=== PATIENT | male | born 1955 | race Caucasian/White ===

== ENCOUNTER 2020-01-21 06:44 | Day surgery (SDC) | payer BC ==
[~2020-01-21] VITALS: Ht 180.3 cm; Wt 93.9 kg
[~2020-01-21 06:44] MED LIST: ANUCORT-HC25 MG PR; DILTIAZEM ER240 MG PO; FAMOTIDINE40 MG PO; FLEXERIL10 MG PO; KEFLEX500 MG PO; LISINOPRIL20 MG PO; NORCO 5-325 TA1 EACH PO; OMEPRAZOLE20 MG PO; PLAVIX75 MG PO
--- NOTE | 2020-01-21 09:04 | NUR ---
01/21/20 0904 Radha Starr 0814 PT ARRIVED TO PACU ON 3L VIA NC, PT WAKES TO VERBAL STIMULI AND IS REORIENTED TO PACU. RESP EVEN AND UNLABORED. VSS. PT FALLS EASILY BACK TO SLEEP.
--- NOTE | 2020-01-21 10:22 | NUR ---
PT ALERT, ORIENTED AND NOTED THAT HIS DWAINE IS TO BE NOTIFIED WHEN HE IS READY FOR DC. PT HAS HAD PREVIOUS SCOPES, QUESTIONS ASKED AND ANSWERED. PT ALSO REQUESTED PRAYER
--- NOTE | 2020-01-21 14:55 | OR ---
[facility] [address] [place], [place] [address] Signed DATE OF OPERATION: SURGEON: Cristo Erickson MD PREOPERATIVE DIAGNOSES: 1. Screening. 2. Internal and external hemorrhoids. POSTOPERATIVE DIAGNOSES: 1. A 4 mm polyp at 18 cm (rectosigmoid junction). 2. A 3 mm polyps x2 at 15 cm. 3. Minimal internal hemorrhoids. 4. Minimal to moderate external hemorrhoids. PROCEDURE: Colonoscopy with cold biopsy. ESTIMATED BLOOD LOSS: None. INDICATIONS: Juan is a 64-year-old gentleman who had unremarkable screening colonoscopy back in 2008 except for internal and external hemorrhoids. He tells me he is doing great and has no lower GI complaints currently. There is no family history of colon cancer or polyps. He returns for a followup screening colonoscopy. I gave Juan a pamphlet on colonoscopy. We looked at that together along with the risks including, but not limited to gas bloating, crampy abdominal pain, bleeding, perforation requiring surgery, and missed diagnosis. He also understands the need for IV conscious sedation. He had expressed and understanding wished to proceed. DESCRIPTION OF PROCEDURE: Juan was taken into our endoscopy suite and placed in the left lateral decubitus position. He was given a total of 7 mg of Versed and 100 mcg of fentanyl to cover the case. A digital rectal exam was performed. He does have minimal to moderate circumferential external hemorrhoids. Also his prostate gland is moderately enlarged and moderately indurated. The left low more prominent than the right. The adult colonoscope was then introduced, advanced all around into the cecum under direct visualization of camera without difficulty. He woke up briefly as we came around the hepatic flexure and into the cecum itself. His prep was quite excellent. The scope was slowly withdrawn. We could easily see the appendiceal orifice and the ileocecal valve. The above-mentioned polyps were easily removed with the help of our cold biopsy forceps. Electronically Signed By: CRISTO ERICKSON MD 01/21/20 1455 PATIENT NAME: JUAN SMITH OPERATIVE REPORT DATE OF : 59 REPORT #: [id number] PHYSICIAN: CRISTO ERICKSON MD PCP: GABY ESPINOSA MD REPORT IS CONFIDENTIAL AND NOT TO BE RELEASED WITHOUT AUTHORIZATION [address] [address] Signed Upon retroflexion of scope, he does have just minimal internal hemorrhoid tissue. The gas was then suctioned out and the colonoscope removed. Overall, Juan tolerated this procedure quite well. RECOMMENDATIONS: I will see Juan back in my office in 7 to 14 days to review his results. Cristo Erickson MD ALB/MODL /[id number] cc: MD Cristo Griffin MD Copies: GABY ESPINOSA MD, ANDREW L MD ~ Electronically Signed By: CRISTO ERICKSON MD 01/21/20 1455 PATIENT NAME: JUAN SMITH OPERATIVE REPORT DATE OF : 59 REPORT #: [id number] PHYSICIAN: CRISTO ERICKSON MD PCP: GABY ESPINOSA MD REPORT IS CONFIDENTIAL AND NOT TO BE RELEASED WITHOUT AUTHORIZATION
--- NOTE | 2020-01-22 12:25 | PATH ---
[facility] [address] [facility] [place], [place] [address] Signed SPECIMEN(S): A COLON POLYP AT 18 CM SPECIMEN(S): B COLON POLYP AT 15 CM SPECIMEN SOURCE: A. COLON POLYP AT 18 CM B. COLON POLYP AT 15 CM CLINICAL HISTORY: Follow-up colonoscopy. MICROSCOPIC DESCRIPTION: Histologic sections of all submitted blocks are examined by light microscopy. These findings, together with the gross examination, support the pathologic diagnosis. FINAL PATHOLOGIC DIAGNOSIS: A. Colon, polyp at 18 cm, polypectomy: - Hyperplastic polyp. - Negative for dysplasia or malignancy. B. Colon, polyp at 15 cm, polypectomy: - Tubular adenoma. - Negative for high-grade dysplasia or malignancy. NAL:cml:C2NR GROSS DESCRIPTION: Two specimens are received in two containers, labeled "KT." A. The specimen, labeled "KT, polyps x 2 at 18 cm," and designated on the requisition "colon polyp at 18 cm," is received in formalin and consists of two pate soft tissue fragments that measure 0.3 cm in greatest dimension. The specimen is entirely submitted in cassette (A1). B. The specimen, labeled "KT, 2," and designated on the requisition "colon polyp at 15 cm," is received in formalin and consists of one pate soft tissue fragment that measures 0.3 cm in greatest dimension. The specimen is entirely submitted in cassette (B1). AT (under the direct supervision of a pathologist) The Gross Description was prepared using a voice recognition system. The report was reviewed for accuracy; however, sound-alike word errors, addition and/or deletions may occur. If there is any question about this report, please contact Client Services. PERFORMING LABORATORY: The technical component was performed by [facility], Brandy Melendezkristie Alvaro, PATIENT NAME: JUAN SMITH PATHOLOGY DATE OF : 59 REPORT #: [id number] PHYSICIAN: GUALBERTO PATHOLOGY PCP: GABY ESPINOSA MD REPORT IS CONFIDENTIAL AND NOT TO BE RELEASED WITHOUT AUTHORIZATION [facility] [address] [place], [place] [address] [place] [address] (Crusher And Binder Operator: Carmelita Allen MD; CLIA# [id number]). Professional interpretation was performed by [facility], [address] [address] (CLIA# [id number]). Diagnostician: Mikaela Lewis MD Pathologist Electronically Signed 01/22/2020 Copies: ~ PATIENT NAME: JUAN SMITH PATHOLOGY DATE OF : 59 REPORT #: [id number] PHYSICIAN: GUALBERTO WOLF PCP: GABY ESPINOSA MD REPORT IS CONFIDENTIAL AND NOT TO BE RELEASED WITHOUT AUTHORIZATION
== END 2020-01-21 09:30 | disposition home or self-care (01) ==
LOC: OPS 06:44 → DS 06:44 → OPS 08:15
PROVIDERS: Colon & Rectal Surgery
PROC: 0DBE8ZZ Excision of Large Intestine, Via Natural or Artificial Opening Endoscopic (ICD-10-PCS; principal; 2020-01-21 08:15)
DX: Z12.11 Encounter for screening for malignant neoplasm of colon (principal); D12.6 Benign neoplasm of colon, unspecified; K64.8 Other hemorrhoids; K64.4 Residual hemorrhoidal skin tags; Z79.899 Other long term (current) drug therapy
CPT/HCPCS: 99153; G0500; J2250; J3010; J7121

== ENCOUNTER 2025-02-20 12:25 | Day surgery (SDC) | payer BC ==
[~2025-02-20] VITALS: Ht 180.3 cm; Wt 99.0 kg
--- NOTE | ~2025-02-20 | OR ---
[facility] [address] [place], [place] [address] Draft DATE OF OPERATION: 02/20/2025 SURGEON: Sima Landaverde DO PREOPERATIVE DIAGNOSIS: Colon cancer screening. POSTOPERATIVE DIAGNOSIS: Colon cancer screening with a colon polyp at 50 cm. PROCEDURE PERFORMED: Colonoscopy with cold biopsy forceps, biopsy of the polyp at 50 cm. ANESTHESIA: IV sedation. ESTIMATED BLOOD LOSS: None. DRAINS: None. COMPLICATIONS: None. DESCRIPTION OF PROCEDURE: The patient was brought to the GI lab, placed in supine position. After induction of IV sedation, the patient was then placed in the left lateral position, padded to the satisfaction of anesthesia. The Olympus video colonoscope was then introduced through the anus, directed through the length of the rectum while insufflating and advancing the scope through the rectosigmoid, sigmoid colon, descending colon, transverse colon, ascending colon and into the cecum. The colon was then insufflated, and general exploration of the mucosal surface was then carried out. The ascending colon and cecum had no intrinsic or extrinsic masses or lesions or ulcerations appreciated. The transverse colon had no lesions, ulcerations, intrinsic or extrinsic masses noted. The scope was then brought back into the descending colon. No intrinsic or extrinsic masses, no lesions or ulcerations were noted. At approximately 50 cm from the anal verge, a flat sessile polyp was noted. Multiple biopsies with the cold biopsy forceps were then carried out, passed off the field for pathologic review. Satisfactory hemostasis was maintained. Sigmoid colon otherwise had no intrinsic or extrinsic PATIENT NAME: JUAN SMITH OPERATIVE REPORT DATE OF : 59 REPORT #: [id number] PHYSICIAN: SIMA LANDAVERDE DO PCP: ELEANOR PACHECO DO REPORT IS CONFIDENTIAL AND NOT TO BE RELEASED WITHOUT AUTHORIZATION [place] [id number] [place], [place] [address] Draft masses, no lesions or ulcerations were appreciated. The rectosigmoid was unremarkable. The scope was withdrawn. The patient tolerated the procedure well and to recovery room in satisfactory condition. Sima Landaverde DO RS/JIEL /[id number] Copies: ~ PATIENT NAME: JUAN SMITH OPERATIVE REPORT DATE OF : 59 REPORT #: [id number] PHYSICIAN: SIMA LANDAVERDE DO PCP: ELEANOR PACHECO DO REPORT IS CONFIDENTIAL AND NOT TO BE RELEASED WITHOUT AUTHORIZATION
[~2025-02-20 12:25] MED LIST changes: +DILTIAZEM 24HR120 MG PO; +IBLOOD GLUCOSE TEST STRIP 1 EA TEST VI PRN; +LACTATED RINGER'S 1,000 ML IV SCH; +LIDOCAINE HCL 1% 5 ML SDV INJ ONE; +VAZALORE81 MG PO
[2025-02-20 12:48] VITALS: BP 150/100
[2025-02-20] MEDS ORDERED: CEFAZOLIN SODIUM 2 GM/20 ML SYR IV SCH (12:55)
[2025-02-20] MEDS ORDERED: LIDOCAINE HCL 2% 5 ML SDV ONE (13:18)
--- NOTE | 2025-02-20 14:27 | NUR ---
02/20/25 1427 Edel Pace 1417-PT ARRIVES TO PACU, VIA STRETCHER, RESTING ON LT SIDE, PT NOT RESPONSIVE TO VERBAL OR TACTILE STIMULI, VSS ON 6L VIA MASK, RR EVEN AND UNLABORED.
[2025-02-20 15:03] VITALS: BP 132/99
--- NOTE | 2025-02-24 12:10 | PATH ---
[facility] [address] [place], [place] [address] Signed SPECIMEN(S): A SIGMOID POLYP AT 50 CM SPECIMEN SOURCE: A. SIGMOID POLYP AT 50 CM CLINICAL HISTORY: History of polyps. Postop: Polyp at 50 cm FINAL PATHOLOGIC DIAGNOSIS: Sigmoid polyp at 50 cm - Fragments of sessile serrated polyp, negative for dysplasia. AMB MICROSCOPIC EXAMINATION: Histologic sections of all submitted blocks are examined by light microscopy. These findings, together with the gross examination, support the pathologic diagnosis. GROSS DESCRIPTION: The specimen, labeled and designated "Teater, sigmoid colon polyp at 50 cm," is received in formalin and consists of two pate soft tissue fragments, ranging from 0.1-0.2 cm. Entirely submitted in (A1). JS (under the direct supervision of a pathologist) The Gross Description was prepared using a voice recognition system. The report was reviewed for accuracy; however, sound-alike word errors, addition and/or deletions may occur. If there is any question about this report, please contact Client Services. ADDITIONAL NOTES: Immunohistochemical and/or in situ hybridization studies if performed in this case included appropriate positive controls that reacted as expected. This test was developed and its performance characteristics determined by [facility]. It has not been cleared or approved by the U.S. Food and Drug Administration. The FDA has determined that such clearance or approval is not necessary. This test is used for clinical purposes. It should not be regarded as investigational or for research. [facility] is certified under the Clinical Laboratory Improvement Amendments of 1988 (CLIA) as qualified to perform high complexity clinical laboratory testing. PATIENT NAME: JUAN SMITH PATHOLOGY DATE OF : 59 REPORT #: [id number] PHYSICIAN: GUALBERTO WOLF PCP: ELEANOR PACHECO DO REPORT IS CONFIDENTIAL AND NOT TO BE RELEASED WITHOUT AUTHORIZATION [place] [address] [facility] [place], [place] [address] Signed PERFORMING LABORATORY: Technical component was performed by [facility], [address] [place] [address] (CLIA# [id number]). [facility] [address] [place] [phone] [id number] Diagnostician: Carmelita Allen MD Pathologist Electronically Signed 02/24/2025 Copies: ~ PATIENT NAME: JUAN SMITH PATHOLOGY DATE OF : 59 REPORT #: [id number] PHYSICIAN: GUALBERTO WOLF PCP: ELEANOR PACHECO DO REPORT IS CONFIDENTIAL AND NOT TO BE RELEASED WITHOUT AUTHORIZATION
== END 2025-02-20 15:10 | disposition home or self-care (01) ==
LOC: DS 12:25
PROVIDERS: ATTEND Surgery
PROC: 0DBN8ZX Excision of Sigmoid Colon, Via Natural or Artificial Opening Endoscopic, Diagnostic (ICD-10-PCS; principal; 2025-02-20 13:35)
DX: Z12.11 Encounter for screening for malignant neoplasm of colon (principal); D12.5 Benign neoplasm of sigmoid colon; E78.2 Mixed hyperlipidemia; I10 Essential (primary) hypertension; K21.9 Gastro-esophageal reflux disease without esophagitis; G47.33 Obstructive sleep apnea (adult) (pediatric); Z86.0101 Personal history of adenomatous and serrated colon polyps; Z86.0102 Personal history of hyperplastic colon polyps; Z79.82 Long term (current) use of aspirin; Z79.899 Other long term (current) drug therapy
CPT/HCPCS: 00812; J0690; J2003; J2704; J7121